=== PATIENT | female | born 1995 | race Caucasian/White ===

== ENCOUNTER 2017-03-06 03:06 | Emergency (ER) | payer OTHER ==
[~2017-03-06] VITALS: Ht 167.6 cm; Wt 52.7 kg
[2017-03-06 03:13] VITALS: TEMP 36.8; Ht 167.6 cm; Wt 52.7 kg
[2017-03-06] MEDS ORDERED: SERT-234 PO (03:29)
--- NOTE | 2017-03-06 03:47 | EMERGENCY ROOM VISIT NOTE ---
History Report prepared by Krystle: Sky Ramirez Under the Supervision of: Dr. Jessica Johnson D.O. First contact with patient: 03:15 Chief Complaint: MENTAL HEALTH EVALUATION Stated Complaint: MENTAL HEALTH History of Present Illness The patient is a 22 year old male who presents to the Emergency Room for a mental health evaluation. He currently lives in a homeless [facility]. He has for the past two months. Per the patient, he could not guarantee his own safety tonight secondary to self harm. He uses a razor to cut himself as a coping mechanism. He has cuts on his abdomen, but says he did not cut his thighs. He has been cutting for a "long time." He states that he does not want to commit suicide. He denies any alcohol or drug use. He has a past medical history of asthma, anxiety, PTSD, bipolar disorder, and depression. He takes Zoloft regularly. He is currently employed at [employer]. He denies any chest pain, shortness of breath, vomiting, abdominal pain, urinary symptoms, diarrhea, melena, hematochezia, sore throat, or cough. He is upset that he is here because he does not think it is necessary. He has been admitted into an inpatient psychiatric facility in the past, but not recently. Per a staff member in the mcc named Peyton, the patient apparently told the staff a couple of days ago that he was on the brink of suicidal thoughts and thinking about it more often. Tonight, she came downstairs to have him take his medication, but he would not come out. He then came out later asking for Neosporin for the cuts on his abdomen. He would not answer her questions about suicidal thoughts, but only said he could not guarantee his own safety in the middle of the night. Staff at the mcc petitioned the 302 because they were concerned for his cutting. He also had thoughts of killing his mother. He also told the staff that he knew exactly what to say to the crisis workers and to us to avoid being admitted. He also told them he had thoughts of killing those who had no regards for black lives. 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 A total of 10 systems reviewed and were otherwise negative. Past Medical & Surgical Medical Problems: (1) Anxiety (2) Bipolar disorder (3) Depression (4) PTSD (post-traumatic stress disorder) Family History Patient reports no known family medical history. Social History Smoking Status: Current Some Day Smoker Smokeless Tobacco Use: No Alcohol Use: none Drug Use: none Marital Status: single Housing Status: other (Homeless mcc) Occupation Status: employed Current/Historical Medications Scheduled Sertraline (Zoloft), 100 MG PO DAILY Allergies Coded Allergies: No Known Allergies (Unverified , 03/06/17) Physical Exam Vital Signs Date Time Temp Pulse Resp B/P (MAP) Pulse Ox O2 Delivery O2 Flow Rate FiO2 03/06/17 03:13 36.8 62 18 136/87 100 Room Air Physical Exam General: Patient appears depressed, is transgender, and identifies as a male. HEENT: Head - normocephalic and atraumatic Pupils are equal, round, and reactive to light. Extraocular eye muscles are intact, and sclera are anicteric. Nose - moist nasal mucosa without discharge. Mouth - moist buccal mucosa. Oropharynx is nonerythematous and there is no tonsillar exudate or edema noted. Neck: Supple; no nuchal rigidity, cervical lymphadenopathy. Heart: Regular rate and rhythm. There is a normal S1 and S2 with no murmurs, clicks, or gallops appreciated. Lungs: Clear to auscultation bilaterally with no wheezes, rales, or rhonchi. Abdomen: Soft, completely nontender, nondistended, with good bowel sounds. There are no palpable pulsatile masses or hepatosplenomegaly. There is no guarding, rigidity, or rebound noted. Very superficial self-inflicted lacerations to bilateral flanks. Extremities: No evidence of cyanosis, clubbing, or edema. There are easily palpable peripheral pulses. Skin: warm and dry with good turgor and no rashes. Psych: Completely avoids eye contact. Extremely flat affect. Denies suicidal ideation. Appears anxious at times. Medical Decision & Procedures Laboratory Results 03/06/17 03:50 03/06/17 03:50 Test 03/06/17 03:18 03/06/17 03:50 Urine Opiates Screen NEG (NEG) Urine Methadone, Qualitative NEG (NEG) Urine Barbiturates NEG (NEG) Urine Phencyclidine (PCP) Level NEG (NEG) Ur Amphetamine/Methamphetamine NEG (NEG) MDMA (Ecstasy) Screen NEG (NEG) Urine Benzodiazepines Screen NEG (NEG) Urine Cocaine Metabolite NEG (NEG) Urine Marijuana (THC) NEG (NEG) Red Blood Count 4.02 M/uL (4.2-5.4) Mean Corpuscular Volume 91.3 fL (80-100) Mean Corpuscular Hemoglobin 31.6 pg (25-34) Mean Corpuscular Hemoglobin Concent 34.6 g/dl (32-36) RDW Standard Deviation 41.1 fL (36.4-46.3) RDW Coefficient of Variation 12.1 % (11.5-14.5) Mean Platelet Volume 10.0 fL (7.4-10.4) Anion Gap 6.0 mmol/L (3-11) Est Creatinine Clear Calc Drug Dose 122.4 ml/min Estimated GFR () > 150.0 Estimated GFR (Non- 130.5 BUN/Creatinine Ratio 15.1 (10-20) Calcium Level 8.8 mg/dl (8.5-10.1) Total Bilirubin 0.2 mg/dl (0.2-1) Direct Bilirubin < 0.1 mg/dl (0-0.2) Aspartate Amino Transf (AST/SGOT) 14 U/L (15-37) Alanine Aminotransferase (ALT/SGPT) 21 U/L (12-78) Alkaline Phosphatase 69 U/L (45-117) Total Protein 7.0 gm/dl (6.4-8.2) Albumin 4.0 gm/dl (3.4-5.0) Thyroid Stimulating Hormone (TSH) 4.270 uIu/ml (0.300-4.500) Salicylates Level < 1.7 mg/dl (2.8-20) Acetaminophen Level < 2 ug/ml (10-30) Ethyl Alcohol mg/dL < 3.0 mg/dl (0-3) Laboratory results per my review. ED Course 0315: Past medical records reviewed. The patient was evaluated in room A8. A complete history and physical exam was performed. Labs were drawn as above. 0350: I have reviewed the 302 petitioning statement. 0445: After reevaluation, I offered further treatment as an inpatient at a mental health facility. The patient is willing to sign voluntarily. The staff from [address] [place] [address] will start the voluntary admission process and bed search. 0529: The patient signed the 201, and I declined the 302. 0730: The patient will be signed out to Dr. Colvin at the change in shift to complete the bed search. Medical Decision The patient is a 22 year old male who presents to the ED for a mental health evaluation. Differential diagnosis includes suicidal ideation, mood disorder, thought disorder, and homicidal ideation. I attest that I have personally reviewed the patient's current medication list. Patient was found to have normal blood pressure on screening and does not require follow-up. Laboratory Results: Negative tox screening, negative alcohol screening, negative Tylenol and Aspirin screening, normal TSH, negative renal function, normal glucose and LFTs , normal white count, and stable H&H. The patient has history of bipolar disorder, PTSD, anxiety, and depression. He has not had an inpatient stay for more than 10 years. He has a long-standing history of self-mutilation. The staff from the homeless mcc were concerned for the patient states he as he has been cutting and making suicidal and homicidal statements. The patient will require inpatient psychiatric care. He was willing to admit herself voluntarily. The bed search is currently underway. The case will be signed out to Dr. Colvin at change of shift Impression Primary Impression: Mood disorder Additional Impression: Deliberate self-cutting Scribe Attestation The scribe's documentation has been prepared under my direction and personally reviewed by me in its entirety. I confirm that the note above accurately reflects all work, treatment, procedures, and medical decision making performed by me. Departure Information Dispostion Still a Patient Patient Instructions My [facility] Problem Qualifiers
[2017-03-06 04:01] LABS: HEMATOCRIT 36.7 % (37-47); MEAN CELL VOLUME 91.3 fL (80-100); MEAN CORPUSCULAR HEMOGLOBIN 31.6 pg (25-34); MEAN CORPUSCULAR HGB CONC 34.6 g/dl (32-36); PLATELET COUNT 276 K/uL (130-400); RED BLOOD COUNT 4.02 M/uL (4.2-5.4); WHITE BLOOD COUNT 5.92 K/uL (4.8-10.8)
[2017-03-06 04:04] LABS: BENZODIAZEPINE, URINE NEG (NEG); COCAINE,URINE NEG (NEG); PHENCYCLIDINE, URINE NEG (NEG)
[2017-03-06 04:28] LABS: ALT/SGPT 21 U/L (12-78); AST/SGOT 14 U/L (15-37); BLOOD UREA NITROGEN 9 mg/dl (7-18); BUN/CREATININE RATIO 15.1 (10-20); CALCIUM 8.8 mg/dl (8.5-10.1); CARBON DIOXIDE 26 mmol/L (21-32); CHLORIDE 108 mmol/L (98-107); CREATININE 0.61 mg/dl (0.60-1.20); GLUCOSE 85 mg/dl (70-99); POTASSIUM 3.6 mmol/L (3.5-5.1); SODIUM 140 mmol/L (136-145)
[2017-03-06 04:38] LABS: ACETAMINOPHEN < 2 ug/ml (10-30)
[2017-03-06 04:39] LABS: ALKALINE PHOSPHATASE 69 U/L (45-117)
[2017-03-06] MEDS ORDERED: SERTRALINE HCL 100 MG TAB PO STA (06:38)
[2017-03-06 13:22] VITALS: BP 149/86; PULSE 76; O2SAT 100
== END 2017-03-06 13:22 | disposition still patient (30) ==
LOC: C.EDA 03:08 → EDSEX 03:08 → MERGE 03:08 → C.EDA 13:22
DX: Z00.8 Encounter for other general examination (principal); F31.9 Bipolar disorder, unspecified; X78.8XXA Intentional self-harm by other sharp object, initial encounter; F41.8 Other specified anxiety disorders; F17.210 Nicotine dependence, cigarettes, uncomplicated; Z59.0 Homelessness

== ENCOUNTER 2018-03-24 22:16 | Inpatient (IN) | payer OTHER ==
[~2018-03-24] VITALS: Ht 167.6 cm; Wt 60.2 kg
[~2018-03-24 22:16] MED LIST: SERT-234 PO
[2018-03-24] MEDS ORDERED: LORAZEPAM 2 MG/ML 1 ML VIAL ONE (22:19)
[2018-03-24] MEDS ORDERED: HALOPERIDOL LACTATE 5 MG/ML 1 ML VIAL ONE (22:19)
[2018-03-24] MEDS ORDERED: RAPID SEQUENCE INDUCTION BAG ONE (22:28)
[2018-03-24] MEDS ORDERED: PROPOFOL IV EMULSION 10 MG/ML 100 ML VIAL IV STA (22:39)
[2018-03-24] MEDS ORDERED: SODIUM CHLORIDE 0.9% 1000ML 2,000 ML IV STA (22:42)
[2018-03-24 22:51] LABS: BASO % 0.1 %; BASO ABS # 0.02 K/uL (0-0.2); HEMATOCRIT 42.4 % (37-47); HEMOGLOBIN 14.9 g/dL (12.0-16.0); IG# 0.04 K/uL (0.00-0.02); LYMPH % 7.4 %; LYMPH ABS # 1.06 K/uL (1.2-3.4); MEAN CORPUSCULAR HEMOGLOBIN 32.3 pg (25-34); MEAN CORPUSCULAR HGB CONC 35.1 g/dl (32-36); MEAN PLATELET VOLUME 10.1 fL (7.4-10.4); MONO % 6.6 %; MONO ABS # 0.95 K/uL (0.11-0.59); NEUT % 85.6 %; NEUT ABS # 12.35 K/uL (1.4-6.5); PLATELET COUNT 325 K/uL (130-400); RED CELL DISTRIBUTION WIDTH CV 12.9 % (11.5-14.5); RED CELL DISTRIBUTION WIDTH SD 43.2 fL (36.4-46.3); WHITE BLOOD COUNT 14.42 K/uL (4.8-10.8)
[2018-03-24 23:01] LABS: PTT PATIENT 24.8 SECONDS (21.0-31.0)
--- NOTE | 2018-03-24 23:10 | DIAGNOSTIC IMAGING REPORT ---
CHEST ONE VIEW PORTABLE HISTORY: Altered mental status. COMPARISON: None. FINDINGS: The endotracheal tube is located within the right mainstem bronchus. This report back by approximately 3 cm. No pneumothorax. No pleural effusions. The lungs are clear. The heart is normal in size. IMPRESSION: The endotracheal tube is located within the right mainstem bronchus. This should be pulled back by approximately 3 cm. These findings were discussed with Dr. Britt at 11:09 PM on 03/24/2018. Electronically signed by: Ed Newman M.D. 03/24/2018 11:09 PM Dictated Date/Time: 03/24/2018 11:07 PM
[2018-03-24 23:26] LABS: ALBUMIN 4.7 gm/dl (3.4-5.0); ALKALINE PHOSPHATASE 94 U/L (45-117); ALT/SGPT 27 U/L (12-78); AST/SGOT 48 U/L (15-37); BLOOD UREA NITROGEN 14 mg/dl (7-18); CALCIUM 9.1 mg/dl (8.5-10.1); CARBON DIOXIDE 18 mmol/L (21-32); CREATININE 1.27 mg/dl (0.60-1.20); GLUCOSE 118 mg/dl (70-99); POTASSIUM 3.8 mmol/L (3.5-5.1); SODIUM 142 mmol/L (136-145); TOTAL PROTEIN 8.3 gm/dl (6.4-8.2)
[2018-03-24] MEDS ORDERED: CEFEPIME IV 1,000 MG in DEXTROSE 5% 100ML 100 ML IV STA (23:46)
[2018-03-25] VITALS (20 sets, daily range): BP systolic 58–182; BP diastolic 35–119; PULSE 49–91; TEMP 36.4–36.8; O2SAT 95–100; Ht 167.6 cm; Wt 60.2 kg
[2018-03-25] MEDS ORDERED: ROCURONIUM BROMIDE 10 MG/ML 10 ML VIAL IV STA (00:14)
[2018-03-25] MEDS ORDERED: VANCOMYCIN CONSULT ACTIVE PRN (00:15)
[2018-03-25] MEDS ORDERED: LORAZEPAM 2 MG/ML 1 ML VIAL IV PRN (00:15)
[2018-03-25] MEDS ORDERED: ICU PROTOCOL FOR HYPERGLYCEMIA PRN (00:15)
[2018-03-25] MEDS ORDERED: PIPERACILL/TAZOBAC CONSULT ACTIVE PRN (00:15)
[2018-03-25] MEDS ORDERED: PROPOFOL IV EMULSION 10 MG/ML 100 ML VIAL IV PRN ×2 (00:15→05:00)
[2018-03-25] MEDS ORDERED: PROPOFOL IV EMULSION 10 MG/ML 100 ML VIAL IV STA (00:17)
[2018-03-25] MEDS ORDERED: SODIUM CHLORIDE 0.9% 1000ML 1,000 ML IV STA (00:30)
[2018-03-25] MEDS ORDERED: ALBUTEROL HFA 8 GM INHALER INH PRN (00:30)
--- NOTE | 2018-03-25 01:47 | EMERGENCY ROOM VISIT NOTE ---
History Report prepared by Scribe: Juwan Bolivar Under the Supervision of: Dr. Cristian Britt D.O. First contact with patient: 22:16 Chief Complaint: OVERDOSE (INTENTIONAL) Stated Complaint: OVERDOSE History of Present Illness The patient is a 20 year old female who presents to the Emergency Room with complaints of constant altered mental status that began this evening. Per police , the patient was at [employer] causing trouble. The patient started to yell and punched people. She then went to [employer] and threatened to punch customers. The patient was escorted out of the restaurant. The patient then began to slam her body against the window. She was found by police laying in the road. The HPI is limited secondary to AMS. Source of History: police History Limited By: AMS Onset: this evening Timing: constant Review of Systems ROS is limited secondary to AMS. Past Medical & Surgical Medical Problems: (1) Agitation (2) Altered mental status (3) Anxiety (4) Asthma (5) Bipolar disorder (6) Depression (7) Depression (8) PTSD (post-traumatic stress disorder) Family History Patient reports no known family medical history. Social History Marital Status: single Occupation Status: employed Current/Historical Medications Unable to Obtain Active Prescriptions or Reported Meds Allergies Coded Allergies: No Known Allergies (Unverified , 03/25/18) Physical Exam Vital Signs Date Time Temp Pulse Resp B/P (MAP) Pulse Ox O2 Delivery O2 Flow Rate FiO2 03/24/18 23:45 75 12 131/78 99 Mechanical Ventilator 03/24/18 23:33 78 03/24/18 23:32 37.4 78 12 149/98 100 Mechanical Ventilator 03/24/18 22:50 50 03/24/18 22:44 39.3 168 34 187/142 99 Room Air Physical Exam GENERAL: Laying in bed, screaming and yelling about God and Gabe, shaking upper and lower body, diaphoretic, soaking through clothes. EYE EXAM: Pupils are dilated bilaterally but reactive. HEAD: Abrasion to the face on the right OROPHARYNX: mucous membranes are dry NECK: supple, no nuchal rigidity, no adenopathy, non-tender LUNGS: Clear to auscultation. Normal chest wall mechanics HEART: Tachycardic, no murmurs. CHEST: Stable to compression anteriorly and posteriorly PELVIS: Stable to compression anteriorly and posteriorly ABDOMEN: abdomen soft, non-tender, normo-active bowel sounds, no masses, no rebound or guarding. BACK: Back is symmetrical on inspection and there is no deformity, no midline tenderness, no CVA tenderness. SKIN: no rashes and no bruising, Abrasions to right side of face. UPPER EXTREMITIES: upper extremities are grossly normal. LOWER EXTREMITIES: No pitting edema. NEURO EXAM: Moving all extremities, nonfocal, fighting, and spitting. Medical Decision & Procedures ER Provider Diagnostic Interpretation: Radiology results as stated below per my review and the radiologist's interpretation: CHEST ONE VIEW PORTABLE HISTORY: Altered mental status. COMPARISON: None. FINDINGS: The endotracheal tube is located within the right mainstem bronchus. This report back by approximately 3 cm. No pneumothorax. No pleural effusions. The lungs are clear. The heart is normal in size. IMPRESSION: The endotracheal tube is located within the right mainstem bronchus. This should be pulled back by approximately 3 cm. These findings were discussed with Dr. Britt at 11:09 PM on 03/24/2018. Electronically signed by: Ed Newman M.D. 03/24/2018 11:09 PM Dictated Date/Time: 03/24/2018 11:[address] HEAD: No intracranial hemorrhage, mass effect or CT evidence of acute infarct. Ventricles are within limits and midline. Mastoids are clear. Radiologist: Pedro Gould M.D. CT C SPINE: No fracture or malalignment. C5-6 spondylosis Endotracheal tube Radiologist: Pedro Gould M.D. NM VQ: Negative study. Radiologist: Zoila Ramos M.D. Laboratory Results 03/24/18 22:40 Red Blood Count 4.61, Mean Corpuscular Volume 92.0, Mean Corpuscular Hemoglobin 32.3, Mean Corpuscular Hemoglobin Concent 35.1, Mean Platelet Volume 10.1, Neutrophils (%) (Auto) 85.6, Lymphocytes (%) (Auto) 7.4, Monocytes (%) (Auto) 6.6, Eosinophils (%) (Auto) 0.0, Basophils (%) (Auto) 0.1, Neutrophils # (Auto) 12.35, Lymphocytes # (Auto) 1.06, Monocytes # (Auto) 0.95, Eosinophils # (Auto) 0.00, Basophils # (Auto) 0.02 03/24/18 22:40 Test 03/24/18 22:40 03/24/18 22:42 03/24/18 23:40 White Blood Count 14.42 K/uL (4.8-10.8) Red Blood Count 4.61 M/uL (4.2-5.4) Hemoglobin 14.9 g/dL (12.0-16.0) Hematocrit 42.4 % (37-47) Mean Corpuscular Volume 92.0 fL (80-100) Mean Corpuscular Hemoglobin 32.3 pg (25-34) Mean Corpuscular Hemoglobin Concent 35.1 g/dl (32-36) Platelet Count 325 K/uL (130-400) Mean Platelet Volume 10.1 fL (7.4-10.4) Neutrophils (%) (Auto) 85.6 % Lymphocytes (%) (Auto) 7.4 % Monocytes (%) (Auto) 6.6 % Eosinophils (%) (Auto) 0.0 % Basophils (%) (Auto) 0.1 % Neutrophils # (Auto) 12.35 K/uL (1.4-6.5) Lymphocytes # (Auto) 1.06 K/uL (1.2-3.4) Monocytes # (Auto) 0.95 K/uL (0.11-0.59) Eosinophils # (Auto) 0.00 K/uL (0-0.5) Basophils # (Auto) 0.02 K/uL (0-0.2) RDW Standard Deviation 43.2 fL (36.4-46.3) RDW Coefficient of Variation 12.9 % (11.5-14.5) Immature Granulocyte % (Auto) 0.3 % Immature Granulocyte # (Auto) 0.04 K/uL (0.00-0.02) Prothrombin Time 11.0 SECONDS (9.0-12.0) Prothromb Time International Ratio 1.0 (0.9-1.1) Activated Partial Thromboplast Time 24.8 SECONDS (21.0-31.0) Partial Thromboplastin Ratio 1.0 Anion Gap 17.0 mmol/L (3-11) Estimated GFR () 69.9 Estimated GFR (Non- 60.3 BUN/Creatinine Ratio 10.9 (10-20) Calcium Level 9.1 mg/dl (8.5-10.1) Total Bilirubin 0.6 mg/dl (0.2-1) Direct Bilirubin mg/dl (0-0.2) Aspartate Amino Transf (AST/SGOT) 48 U/L (15-37) Alanine Aminotransferase (ALT/SGPT) 27 U/L (12-78) Alkaline Phosphatase 94 U/L (45-117) Total Creatine Kinase 638 U/L (26-192) Troponin I 0.015 ng/ml (0-0.045) Total Protein 8.3 gm/dl (6.4-8.2) Albumin 4.7 gm/dl (3.4-5.0) Chemistry Specimen Hemolysis Bedside Lactic Acid Venous 3.56 mmol/L (0.90-1.70) Urine Color YELLOW Urine Appearance CLEAR (CLEAR) Urine pH 5.5 (4.5-7.5) Urine Specific [place] 1.019 (1.000-1.030) Urine Protein TRACE (NEG) Urine Glucose (UA) NEG (NEG) Urine Ketones 3+ (NEG) Urine Occult Blood 1+ (NEG) Urine Nitrite NEG (NEG) Urine Bilirubin NEG (NEG) Urine Urobilinogen NEG (NEG) Urine Leukocyte Esterase SMALL (NEG) Urine WBC (Auto) 10-30 /hpf (0-5) Urine RBC (Auto) 5-10 /hpf (0-4) Urine Hyaline Casts (Auto) 5-10 /lpf (0-5) Urine Epithelial Cells (Auto) >30 /lpf (0-5) Urine Bacteria (Auto) 1+ (NEG) Urine Pathogenic Casts 10-20 GRANULAR CASTS /lpf (0) Urine Mucus PRESENT (NONE PRSENT) Urine Yeast (Auto) (NONE PRSENT) Laboratory results per my review. Medications Administered Medications (Trade) Dose Ordered Sig/S[place] Route Start Time Stop Time Status Last Admin Dose Admin Lorazepam (Ativan Inj) 4 mg STK-MED ONCE .ROUTE 03/24/18 22:19 03/24/18 22:20 DC 03/24/18 22:19 4 MG Haloperidol Lactate (Haldol Inj) 20 mg STK-MED ONCE .ROUTE 03/24/18 22:19 03/24/18 22:20 DC 03/24/18 22:19 20 MG Miscellaneous (Rapid Sequence Induction Bag) 1 ea STK-MED ONCE N/A 03/24/18 22:28 03/24/18 22:29 DC 03/24/18 22:35 1 EA Propofol (Diprivan Iv Emulsion 100ml Vial) 1 dose UD STAT IV 03/24/18 22:39 03/24/18 22:41 DC 03/24/18 22:49 1 DOSE Sodium Chloride 2,000 ml @ 999 mls/hr Q2H1M STAT IV 03/24/18 22:42 03/25/18 00:42 DC 03/24/18 22:49 999 MLS/HR Cefepime HCl 1000 mg/Dextrose 111 ml @ 200 mls/hr NOW STAT IV 03/24/18 23:46 03/25/18 00:19 DC 03/25/18 00:16 200 MLS/HR Procedure EM PROCEDURE NOTE - Endotracheal Intubation PROCEDURE NOTE: Informed consent was not obtained by the patient. Verify Correct Patient: yes Procedure: Endotracheal intubation Indication: agitated delirium The procedure was done emergently. Description of the Procedure: The patient was seen and properly identified. The patient was pre-oxygenated and intubated after rapid sequence induction with meds: Succinylcholine and Ketamine. Intubation was performed using a curved blade and a 7.5 cuffed endotracheal tube. The tube was visualized going through the cords and secured with the 24 cm trevor at the lips. The patient had good bilateral breath sounds in the axillae with good chest rise. Proper ET tube placement was confirmed by end tidal CO2 detector. The patient tolerated the procedure well. ECG Per My Interpretation Indication: altered mental status Rate (beats per minute): 95 Rhythm: sinus rhythm Findings: other (Normal axis, No PVCs) ED Course ED COURSE: Vital signs were reviewed and showed hyperthermic, tachycardic, hypertensive The patients medical record was reviewed The above diagnostic studies were performed and reviewed. ED treatments and interventions as stated above. 2216: The patient was evaluated in room A03. A complete history and physical examination was performed 2219: Ordered Haldol Injection 30 mg IV, Ativan Injection 4 mg IV. 2228: I performed an endotracheal intubation. See procedure notes for further detail. 2239: Ordered Propofol 1 dose IV. 2242: Ordered Sodium Chloride 2000 ml @ 999 mls/hr IV. 2248: I discussed the patients case with Faustino Sosa [facility] PA-C Senior Infrastructure Engineer. He agrees to further evaluate the patient. 2305: I reevaluated the patient. She is going to CT. CCU is down evaluating the patient. 2326: I reevaluated the patient and she is still unconscious.' 2331: I discussed the patients case with Dr. Leigh. He understands the patients condition and agrees to accept the patient. 2346: Ordered Cefepime HCl 1000 mg/ Dextrose 111 ml @ 200 mls/hr IV. 0014: I reevaluated the patient and she is starting to move upper and lower extremities. Medical Decision Differential diagnoses includes but is not limited to toxic, metabolic, infectious, traumatic, cardiac, neurologic, hematologic, psychiatric and inflammatory etiologies. Patient is a 23-year-old female brought in by police and EMS being restrained screaming yelling and shaking. On my exam she was diaphoretic, unreasonable and extremely agitated along with being tachycardic. Unable to get vitals. We immediately gave her 10 mg of Haldol and 2 mg of Ativan. There is no improvement we readministered 10 mg of Haldol and 2 of Ativan 2 minutes later again with no improvement. We waited a total of 10 minutes following the last dose and there is absolutely no improvement of her symptoms. She was febrile at 39.3. At this point I felt it was most prudent in the patient's best interest to intubate her. She was taken into the trauma bay and IV was eventually established she was given succinylcholine and ketamine. She was intubated successfully on the first attempt. ET tube was initially deep on the right mainstem and was pulled back after the chest x-ray to 22 at the lips. Patient was given vecuronium and placed on propofol drip. Temperature was rechecked at 10 came down to 37.4. She started to arouse and she was given rocuronium IV an hour later to ensure that she settled down. We did continue with the propofol. Discussed with the anatomic pathology manager and the hospitalist. Lactate was elevated as expected. She did have a white count as well. I do not favor this is infectious but rather this is agitated delirium based on her presentation. I did obtain blood cultures and did give her 1 dose of antibiotics after discussion with the ICU. Patient was given 3 L normal saline. She was covered with cefepime. She was monitored closely and taken to the ICU following a negative CT head and neck. UA was contaminated. CO2 is slightly low at 17 and do favor this likely secondary to her agitated delirium. Medication Reconcilliation Current Medication List: was personally reviewed by me Blood Pressure Screening Patient's blood pressure: Elevated blood pressure Blood pressure disposition: Elevated BP felt to be situational Consults Time Called: 2247 Consulting Physician: Faustino Sosa [facility] Senior Infrastructure Engineer Returned Call: 2247 I discussed the patients case with Faustino Sosa [facility] DEBBY Senior Infrastructure Engineer. He agrees to further evaluate the patient. Additional Consults: Time Called: 2327 Consulted Physician: Dr. Leigh [facility] Hospitalist Returned Call: 2330 Additional Comments: I discussed the patients case with Dr. Leigh. He understands the patients condition and agrees to accept the patient. Impression Primary Impression: Delirium due to dissociative drug Additional Impressions: Hyperthermia Leukocytosis Lactic acidosis Delirium Critical Care I have personally spent 80 minutes of critical care time in the direct management of this patient. This includes bedside care, interpretation of diagnostic studies, and testing, discussion with consultants, patient, and family members, and other required patient management activities. This 80 minutes is in excess of all separately billable procedures. Scribe Attestation The scribe's documentation has been prepared under my direction and personally reviewed by me in its entirety. I confirm that the note above accurately reflects all work, treatment, procedures, and medical decision making performed by me. Departure Information Dispostion Being Evaluated By Hospitalist Prescriptions Unable to Obtain Active Prescriptions or Reported Meds Patient Instructions My [facility] Problem Qualifiers Additional Impressions: Leukocytosis Leukocytosis type: unspecified Qualified Codes: D72.829 - Elevated white blood cell count, unspecified
[2018-03-25] MEDS ORDERED: VANCOMYCIN IV 1,750 MG in SODIUM CHLORIDE 0.9% 500ML 500 ML IV ONE (02:00)
[2018-03-25] MEDS ORDERED: VANCOMYCIN IV 1,500 MG in SODIUM CHLORIDE 0.9% 500ML 500 ML IV ONE (02:00)
[2018-03-25] MEDS ORDERED: PIPERACILL/TAZOBAC IV 4.5 GM in D5W 100 ML IV ONE (02:00)
[2018-03-25] MEDS ORDERED: SODIUM CHLORIDE 0.9% 1000ML 1,000 ML IV SCH (02:17)
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
[2018-03-25] MEDS ORDERED: LORAZEPAM INJ 1 MG in SYRINGE 0.5 ML IV PRN (03:30)
[2018-03-25] MEDS ORDERED: PNEUMOCOCCAL POLYSACCHARIDES 25 MCG/0.5 ML VIAL/SYR IM. ONE (04:00)
[2018-03-25] MEDS ORDERED: PNEUMOCOCCAL ADMINISTRATION CHARGE ONE (04:00)
[2018-03-25 05:02] LABS: BASO % 0.2 %; BASO ABS # 0.02 K/uL (0-0.2); EOS % 0.3 %; EOS ABS # 0.03 K/uL (0-0.5); HEMATOCRIT 39.3 % (37-47); HEMOGLOBIN 13.5 g/dL (12.0-16.0); IG# 0.03 K/uL (0.00-0.02); LYMPH % 18.7 %; LYMPH ABS # 2.11 K/uL (1.2-3.4); MEAN CELL VOLUME 93.1 fL (80-100); MEAN CORPUSCULAR HGB CONC 34.4 g/dl (32-36); MEAN PLATELET VOLUME 9.7 fL (7.4-10.4); MONO % 9.8 %; NEUT % 70.7 %; NEUT ABS # 7.99 K/uL (1.4-6.5); PLATELET COUNT 261 K/uL (130-400); RED CELL DISTRIBUTION WIDTH SD 43.5 fL (36.4-46.3); WHITE BLOOD COUNT 11.28 K/uL (4.8-10.8)
[2018-03-25] MEDS: NSS + 20MEQ KCL 1000ML 1,000 ML IV SCH ×3 (05:05→19:22)
[2018-03-25 05:27] LABS: ALBUMIN 3.6 gm/dl (3.4-5.0); CALCIUM 7.6 mg/dl (8.5-10.1); CREATININE 0.74 mg/dl (0.60-1.20); POTASSIUM 3.8 mmol/L (3.5-5.1)
[2018-03-25 05:48] LABS: TOTAL PROTEIN 6.6 gm/dl (6.4-8.2)
[2018-03-25] MEDS ORDERED: PIPERACILL/TAZOBAC IV 3.375 GM in DEXTROSE 5% 100ML 100 ML IV SCH (08:00)
[2018-03-25] MEDS ORDERED: HEPARIN SOD 5000 UNIT/0.5 ML CARP SQ SCH (09:00)
--- NOTE | 2018-03-25 09:02 | DIAGNOSTIC IMAGING REPORT ---
HEAD WITHOUT CONTRAST (CT) CLINICAL HISTORY: 23 years-old Female with ams . Acutely altered mental status with drug overdose TECHNIQUE: Multiple axial CT images of the head were obtained without contrast. A dose lowering technique was utilized adhering to the principles of ALARA. COMPARISON: CT cervical spine of same day. FINDINGS: No acute intracranial hemorrhage, midline shift, intracranial mass, hydrocephalus, territorial ischemia or abnormal extra-axial collection. The calvarium is intact. Endotracheal tube noted. Mucosal secretions are seen within the nasal turbinates and nasopharynx with moderate mucosal thickening of the ethmoid air cells. IMPRESSION: No acute intracranial abnormality. The above report was generated using voice recognition software. It may contain grammatical, syntax or spelling errors. Electronically signed by: Chris Palma M.D. 03/25/2018 6:30 AM Dictated Date/Time: 03/25/2018 6:28 AM
--- NOTE | 2018-03-25 09:02 | DIAGNOSTIC IMAGING REPORT ---
CHEST ONE VIEW PORTABLE CLINICAL HISTORY: The endotracheal tube placement. COMPARISON STUDY: Chest radiograph March 24, 2018. FINDINGS: The tip of the endotracheal tube is 3.4 cm above the prema. No pneumothorax or pleural effusion is noted. Curvature of the spine may be positional. Lungs are clear. Cardiac size is normal. Mediastinal contours are normal. IMPRESSION: 1. Tip of endotracheal tube 3.4 cm above the prema. 2. No acute cardiopulmonary findings. Electronically signed by: Souleymane Downing M.D. 03/25/2018 6:32 AM Dictated Date/Time: 03/25/2018 6:30 AM
--- NOTE | 2018-03-25 09:03 | DIAGNOSTIC IMAGING REPORT ---
CT OF THE CERVICAL SPINE WITHOUT CONTRAST CLINICAL HISTORY: Trauma. Altered mental status. COMPARISON STUDY: No previous studies for comparison. TECHNIQUE: Helical axial images of the cervical spine were obtained without IV contrast. Sagittal and coronal reconstructions were viewed. A dose lowering technique was utilized adhering to the principles of ALARA. FINDINGS: Endotracheal tube is noted. Alignment of the cervical spine is anatomic. Craniocervical junction is intact. There is no acute cervical spine fracture. There is mild osteophytosis at C5-C6. Facet joints are intact. There is no prevertebral edema. Secretions within the pharynx are likely related to intubation. IMPRESSION: No acute cervical spine fracture or subluxation. Electronically signed by: Souleymane Downing M.D. 03/25/2018 7:09 AM Dictated Date/Time: 03/25/2018 7:07 AM
[2018-03-25] MEDS ORDERED: VANCOMYCIN IV 750 MG in SODIUM CHLORIDE 0.9% 250ML 250 ML IV SCH (10:00)
[2018-03-25] MEDS ORDERED: LACTATED RINGER'S 1000ML 1,000 ML IV ONE (10:45)
[2018-03-25] MEDS ORDERED: PANTOprazole INJ 40 MG in SYRINGE 0 ML IV SCH (11:00)
[2018-03-25] MEDS ORDERED: GLUCOSE 10 TABS/TUBE PO PRN (11:45)
[2018-03-25] MEDS ORDERED: GLUCAGON FOR INJ 1 MG VIAL IM PRN (11:45)
[2018-03-25] MEDS ORDERED: CARBOHYDRATES FOR HYPOGLYCEMIA PO PRN (11:45)
[2018-03-25] MEDS ORDERED: DEXTROSE 50% 50 ML SYR IV PRN (11:45)
[2018-03-25] MEDS ORDERED: GLUCOSE 40% GEL 15 GM TUBE PO PRN (11:45)
--- NOTE | 2018-03-25 16:34 | Progress Note ---
Internal Med Progress Note Date of Service: Mar 25, 2018. Provider Documentation: SUBJECTIVE: The patient was seen and examined in ICU She was admitted yesterday agitated psychosis which required intubation in ER She was noted to have high temperature at presentation without any source of infection She is extubated early this morning Feels drowsy and cannot remember about intubation at all Expressed to the hospital this morning even with AMA OBJECTIVE: Vital Signs-as noted below Exam: General-drowsy and sleepy Status post extubation without any shortness of breath or distress at rest Eyes-closed ENT-normal Neck-supple Lungs-decreased breath sounds both sides but no wheezing or crackles Heart-regular, no murmur appreciated Abdomen-soft, benign, nontender Extremities-negative for any edema Neuro-alert and awake Seems to be oriented-does not want to answer Drowsy and falling asleep easily Moving all limbs equally Generally weak but no focal neuro deficit Lab data as noted below. ASSESSMENT & PLAN: This 23-year-old female presents with possible drug overdose and agitation. Agitated psychosis; status post intubation last night and successful extubation this morning 03/25 Possible drug overdose with agitation. Received 4 mg of IV Ativan and IV Haldol 20 mg and status post intubation on Diprivan drip currently. Lactic acid was 3.5 and bicarb was 18-doubt any sepsis. Received IV cefepime and fluids in the ER. Empirically starting on Zosyn and vancomycin. Tox screen only positive for marijuana Has not been taking any antipsychotic medications as per the note Seems to very noncooperative in giving information History of depression/bipolar disorder As per [facility] in 2013 she was on risperidone and Zoloft. Currently seems on Zoloft. Very difficult to get any information regarding her medical issues We need a psychiatric evaluation while in the hospital History of asthma. Albuterol p.r.n. Deep venous thrombosis prophylaxis, SCDs for now. Disposition: Admit to the ICU. 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 Medically stable to be transferred to telemetry unit Vital Signs: Date Time Temp Pulse Resp B/P (MAP) Pulse Ox O2 Delivery O2 Flow Rate FiO2 03/25/18 16:00 36.8 52 12 115/55 (75) 95 Room Air 03/25/18 16:00 Room Air 03/25/18 14:00 52 14 129/65 (86) 97 Room Air 03/25/18 12:00 36.5 62 10 147/88 (107) 97 Nasal Cannula 2.0 03/25/18 10:00 57 12 107/67 (80) 100 Nasal Cannula 2.0 03/25/18 08:00 36.5 51 16 118/81 (93) 100 Nasal Cannula 2.0 03/25/18 08:00 Nasal Cannula 03/25/18 08:00 Nasal Cannula 2.0 03/25/18 07:29 30 03/25/18 07:10 30 03/25/18 06:01 49 14 104/55 (71) 99 Mechanical Ventilator 30 03/25/18 05:52 30 03/25/18 05:49 99 Mechanical Ventilator 30 03/25/18 05:01 61 23 121/87 (98) 99 Mechanical Ventilator 30 03/25/18 05:00 30 03/25/18 04:01 36.4 58 32 115/62 (79) 98 Mechanical Ventilator 35 03/25/18 03:20 56 40 119/71 (87) 99 03/25/18 03:10 51 30 131/85 (100) 100 Mechanical Ventilator 03/25/18 03:05 70 29 141/106 (118) 100 Mechanical Ventilator 03/25/18 03:04 75 36 58/35 (43) 100 Mechanical Ventilator 03/25/18 03:01 91 38 158/119 (132) 99 Mechanical Ventilator 35 03/25/18 02:58 35 03/25/18 02:01 72 44 127/77 (94) 99 Mechanical Ventilator 50 03/25/18 01:40 36.4 78 14 156/110 100 Mechanical Ventilator 50 03/25/18 01:17 69 43 132/87 (102) 100 Mechanical Ventilator 50 03/25/18 01:08 50 03/25/18 01:04 69 30 156/110 (125) 100 Mechanical Ventilator 50 03/25/18 01:01 36.4 78 19 182/118 (139) 100 Mechanical Ventilator 50 03/25/18 00:38 89 12 146/96 100 03/25/18 00:25 93 12 153/94 100 Mechanical Ventilator 03/25/18 00:24 93 12 156/101 100 Mechanical Ventilator 03/24/18 23:45 75 12 131/78 99 Mechanical Ventilator 03/24/18 23:33 78 03/24/18 23:32 37.4 78 12 149/98 100 Mechanical Ventilator 03/24/18 22:50 50 03/24/18 22:44 39.3 168 34 187/142 99 Room Air Lab Results: Results Past 24 Hours Test 03/24/18 22:40 03/24/18 22:42 03/24/18 23:40 03/25/18 04:44 Range/Units White Blood Count 14.42 11.28 4.8-10.8 K/uL Red Blood Count 4.61 4.22 4.2-5.4 M/uL Hemoglobin 14.9 13.5 12.0-16.0 g/dL Hematocrit 42.4 39.3 37-47 % Mean Corpuscular Volume 92.0 93.1 80-100 fL Mean Corpuscular Hemoglobin 32.3 32.0 25-34 pg Mean Corpuscular Hemoglobin Concent 35.1 34.4 32-36 g/dl Platelet Count 325 261 130-400 K/uL Mean Platelet Volume 10.1 9.7 7.4-10.4 fL Neutrophils (%) (Auto) 85.6 70.7 % Lymphocytes (%) (Auto) 7.4 18.7 % Monocytes (%) (Auto) 6.6 9.8 % Eosinophils (%) (Auto) 0.0 0.3 % Basophils (%) (Auto) 0.1 0.2 % Neutrophils # (Auto) 12.35 7.99 1.4-6.5 K/uL Lymphocytes # (Auto) 1.06 2.11 1.2-3.4 K/uL Monocytes # (Auto) 0.95 1.10 0.11-0.59 K/uL Eosinophils # (Auto) 0.00 0.03 0-0.5 K/uL Basophils # (Auto) 0.02 0.02 0-0.2 K/uL RDW Standard Deviation 43.2 43.5 36.4-46.3 fL RDW Coefficient of Variation 12.9 13.0 11.5-14.5 % Immature Granulocyte % (Auto) 0.3 0.3 % Immature Granulocyte # (Auto) 0.04 0.03 0.00-0.02 K/uL Prothrombin Time 11.0 9.0-12.0 SECONDS Prothromb Time International Ratio 1.0 0.9-1.1 Activated Partial Thromboplast Time 24.8 21.0-31.0 SECONDS Partial Thromboplastin Ratio 1.0 Sodium Level 142 142 136-145 mmol/L Potassium Level 3.8 3.8 3.5-5.1 mmol/L Chloride Level 107 114 98-107 mmol/L Carbon Dioxide Level 18 20 21-32 mmol/L Anion Gap 17.0 8.0 3-11 mmol/L Blood Urea Nitrogen 14 11 7-18 mg/dl Creatinine 1.27 0.74 0.60-1.20 mg/dl Estimated GFR () 69.9 134.2 Estimated GFR (Non- 60.3 115.8 BUN/Creatinine Ratio 10.9 14.5 10-20 Random Glucose 118 84 70-99 mg/dl Calcium Level 9.1 7.6 8.5-10.1 mg/dl Total Bilirubin 0.6 0.7 0.2-1 mg/dl Direct Bilirubin 0-0.2 mg/dl Aspartate Amino Transf (AST/SGOT) 48 44 15-37 U/L Alanine Aminotransferase (ALT/SGPT) 27 22 12-78 U/L Alkaline Phosphatase 94 75 45-117 U/L Total Creatine Kinase 638 1166 26-192 U/L Troponin I 0.015 0-0.045 ng/ml Total Protein 8.3 6.6 6.4-8.2 gm/dl Albumin 4.7 3.6 3.4-5.0 gm/dl Chemistry Specimen Hemolysis Bedside Lactic Acid Venous 3.56 0.90-1.70 mmol/L Urine Color YELLOW Urine Appearance CLEAR CLEAR Urine pH 5.5 4.5-7.5 Urine Specific Pavilion 1.019 1.000-1.030 Urine Protein TRACE NEG Urine Glucose (UA) NEG NEG Urine Ketones 3+ NEG Urine Occult Blood 1+ NEG Urine Nitrite NEG NEG Urine Bilirubin NEG NEG Urine Urobilinogen NEG NEG Urine Leukocyte Esterase SMALL NEG Urine WBC (Auto) 10-30 0-5 /hpf Urine RBC (Auto) 5-10 0-4 /hpf Urine Hyaline Casts (Auto) 5-10 0-5 /lpf Urine Epithelial Cells (Auto) >30 0-5 /lpf Urine Bacteria (Auto) 1+ NEG Urine Pathogenic Casts 10-20 GRANULAR CASTS 0 /lpf Urine Mucus PRESENT NONE PRSENT Urine Yeast (Auto) NONE PRSENT Urine Opiates Screen NEG NEG Urine Methadone, Qualitative NEG NEG Urine Barbiturates NEG NEG Urine Phencyclidine (PCP) Level NEG NEG Ur Amphetamine/Methamphetamine NEG NEG MDMA (Ecstasy) Screen NEG NEG Urine Benzodiazepines Screen NEG NEG Urine Cocaine Metabolite NEG NEG Urine Marijuana (THC) POS NEG Est Creatinine Clear Calc Drug Dose 112.5 ml/min Lactic Acid Level 0.6 0.4-2.0 mmol/L Magnesium Level 2.1 1.8-2.4 mg/dl Globulin 3.0 2.5-4.0 gm/dl Albumin/Globulin Ratio 1.2 0.9-2 Test 03/25/18 05:15 03/25/18 10:52 03/25/18 10:53 03/25/18 11:17 Range/Units Blood Gas Sample Site L Radial Bedside Blood Gas pH (LAB) 7.37 7.35-7.45 Bedside Blood Gas pCO2 (LAB) 38 35-46 mmHg Bedside Blood Gas pO2 (LAB) 188 80-95 mmHg Bedside Blood Gas HCO3 (LAB) 22 19-24 meq/L Bedside Blood Gas Total CO2 23 24-31 mEq/l Bedside Blood Gas Base Excess (LAB) -4.0 -9-1.8 meq/L Bedside Blood Gas O2 Saturation 100.0 90-95 % Carlos Test Pass Oxygen Delivery Device Ventilator Bedside Oxygen Rate (breaths/min) 14 Blood Gas Minute Ventilation 6.8 Bedside FiO2 35 % Blood Gas Tidal Volume 500 Blood Gas PEEP 5 Total Creatine Kinase 1481 26-192 U/L Human Chorionic Gonadotropin, Qual NEG NEG Bedside Glucose 66 70-90 mg/dl Test 03/25/18 11:53 Range/Units Bedside Glucose 71 70-90 mg/dl Microbiology Results 03/25/18 Blood Culture, Received Pending 03/25/18 Blood Culture, Received Pending 03/25/18 MRSA DNA Surveillance Screen - Final, Complete Specimen Negative for MRSA by DNA Probe 03/24/18 Urine Culture, Received Pending
[2018-03-26 00:07] VITALS: BP 111/55; PULSE 58; TEMP 36.7; O2SAT 98
[2018-03-26] MEDS: NSS + 20MEQ KCL 1000ML 1,000 ML IV SCH ×3 (03:35→20:38)
--- NOTE | 2018-03-26 07:01 | DIAGNOSTIC IMAGING REPORT ---
CHEST ONE VIEW PORTABLE HISTORY: 23 years-old Female S/P INTUBATION. Acute respiratory failure COMPARISON: Chest radiograph 03/25/2018 TECHNIQUE: Portable AP view of the chest FINDINGS: Cardiomediastinal and hilar silhouettes are within normal limits. Previously noted endotracheal tube is no longer present. No pneumothorax, pleural effusion, focal airspace consolidation or overt pulmonary edema. The bones of the chest appear grossly intact. IMPRESSION: Interval extubation without acute process. The above report was generated using voice recognition software. It may contain grammatical, syntax or spelling errors. Electronically signed by: Chris Palma M.D. 03/26/2018 6:59 AM Dictated Date/Time: 03/26/2018 6:58 AM
[2018-03-26 07:16] VITALS: BP 127/65; PULSE 81; TEMP 36.9; O2SAT 99
[2018-03-26 08:11] LABS: BASO % 0.3 %; BASO ABS # 0.02 K/uL (0-0.2); EOS % 0.5 %; EOS ABS # 0.04 K/uL (0-0.5); HEMATOCRIT 43.1 % (37-47); HEMOGLOBIN 14.3 g/dL (12.0-16.0); IG# 0.02 K/uL (0.00-0.02); LYMPH % 19.8 %; LYMPH ABS # 1.47 K/uL (1.2-3.4); MEAN CELL VOLUME 95.4 fL (80-100); MEAN CORPUSCULAR HEMOGLOBIN 31.6 pg (25-34); MEAN CORPUSCULAR HGB CONC 33.2 g/dl (32-36); MEAN PLATELET VOLUME 10.4 fL (7.4-10.4); MONO ABS # 0.52 K/uL (0.11-0.59); NEUT % 72.1 %; NEUT ABS # 5.34 K/uL (1.4-6.5); PLATELET COUNT 257 K/uL (130-400); RED CELL DISTRIBUTION WIDTH CV 12.9 % (11.5-14.5); RED CELL DISTRIBUTION WIDTH SD 44.9 fL (36.4-46.3); WHITE BLOOD COUNT 7.41 K/uL (4.8-10.8)
[2018-03-26 08:51] LABS: ALBUMIN 3.6 gm/dl (3.4-5.0); CALCIUM 8.2 mg/dl (8.5-10.1); CREATININE 0.65 mg/dl (0.60-1.20); POTASSIUM 4.3 mmol/L (3.5-5.1); TOTAL PROTEIN 6.7 gm/dl (6.4-8.2)
--- NOTE | 2018-03-26 11:20 | Psychiatric Consultation ---
Consultation Date of Consultation Mar 26, 2018. Identifying Data Luz Maria is a 23 yo female who identifies as transgender male and prefers the name Benjamin. Benjamin is reportedly homeless and consult is by Dr. Mesa for agitated psychosis. Benjamin was brought to [facility]. Chief Complaint "Are you gonna let me out of here? Are you gonna tell the police?". History of Present Illness Benjamin lacks insight into why in hospital. Was last seen 1 year ago for episode of cutting at a homeless [facility] and was committed to [place] for bipolar diagnosis. Was discharged on Zoloft and Risperdal but apparently stopped taking it soon after due to cost. This episode patient was acting erratically in a vape shop and required hand cuffs by police. On initial presentation had elevated temp and pulse and significant agitation that failed to respond to Haldol 20 mg and Ativan 4 mg IM. Patient was then intubated/received propofol. Currently resting on med floor, irritable when approached and won't engage in any meaningful conversation around treatment. After repeated questions about confidentiality, admitted to "dropping acid" and smoking MJ daily. Would not answer questions re : intent, yelled at provider for not discharging him to work, demanding he be paid for lost time. Past Psychiatric History Current OP Treatment: no current treatment Prior OP Treatment: therapist ([facility] Prior Psych Hospitalizations: other ([place] 2017) Past Medication Trials chart lists hospitalizations as a child and recurrent cutting behaviors, patient is uncooperative with interview and no way to confirm access to weapons Past Medical/Surgical History (1) Asthma exacerbation (2) Hyperthermia (3) Delirium (4) Leukocytosis Allergies Allergies: Coded Allergies: No Known Allergies (Unverified , 03/25/18) Home Medications Unable to Obtain Active Prescriptions or Reported Meds Family History Patient reports no known family medical history. History of Substance Abuse: Yes (was removed from bio parents to foster care for drug use. 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 Relationship History: never Children: denied Legal History: other (refused to answer) Review of Systems patient uncooperative Examination Vital Signs Vital Signs Past 12 Hours Date Time Temp Pulse Resp B/P (MAP) Pulse Ox O2 Delivery O2 Flow Rate FiO2 03/26/18 07:16 36.9 81 20 127/65 (85) 99 Room Air 03/26/18 00:07 36.7 58 18 111/55 (73) 98 Room Air 03/26/18 00:00 Room Air Laboratory Results Last 24 Hours Test 03/25/18 11:17 03/25/18 11:53 03/26/18 07:40 03/26/18 08:52 Bedside Glucose 66 mg/dl 71 mg/dl 79 mg/dl White Blood Count 7.41 K/uL Red Blood Count 4.52 M/uL Hemoglobin 14.3 g/dL Hematocrit 43.1 % Mean Corpuscular Volume 95.4 fL Mean Corpuscular Hemoglobin 31.6 pg Mean Corpuscular Hemoglobin Concent 33.2 g/dl Platelet Count 257 K/uL Mean Platelet Volume 10.4 fL Neutrophils (%) (Auto) 72.1 % Lymphocytes (%) (Auto) 19.8 % Monocytes (%) (Auto) 7.0 % Eosinophils (%) (Auto) 0.5 % Basophils (%) (Auto) 0.3 % Neutrophils # (Auto) 5.34 K/uL Lymphocytes # (Auto) 1.47 K/uL Monocytes # (Auto) 0.52 K/uL Eosinophils # (Auto) 0.04 K/uL Basophils # (Auto) 0.02 K/uL RDW Standard Deviation 44.9 fL RDW Coefficient of Variation 12.9 % Immature Granulocyte % (Auto) 0.3 % Immature Granulocyte # (Auto) 0.02 K/uL Sodium Level 138 mmol/L Potassium Level 4.3 mmol/L Chloride Level 110 mmol/L Carbon Dioxide Level 14 mmol/L Anion Gap 14.0 mmol/L Blood Urea Nitrogen 7 mg/dl Creatinine 0.65 mg/dl Est Creatinine Clear Calc Drug Dose 128.1 ml/min Estimated GFR () 147.1 Estimated GFR (Non- 126.9 BUN/Creatinine Ratio 10.8 Random Glucose 41 mg/dl Calcium Level 8.2 mg/dl Magnesium Level 1.9 mg/dl Total Bilirubin 0.6 mg/dl Direct Bilirubin 0.2 mg/dl Aspartate Amino Transf (AST/SGOT) 65 U/L Alanine Aminotransferase (ALT/SGPT) 27 U/L Alkaline Phosphatase 76 U/L Total Protein 6.7 gm/dl Albumin 3.6 gm/dl Test 03/26/18 09:59 Bedside Glucose 112 mg/dl Mental Examination During interview pt is: uncooperative, guarded Appearance: disheveled, other (picking at scabs on face to point of bleeding) Eye contact is: poor Motor behavior is: psychomotor agitation Speech: loud Affect: labile, irritable Mood is: irritable Thought process: perseveration Thought content: paranoid Suicidal thought are: denied (but cannot reliably contract as uncooperative with risk assessment) Hallucinations: other (did not appear to be responding to internal stimuli) Cognition: other (attention poor) Intelligence estimated to be: average Insight: severely impaired Judgement: severely impaired Impression / Recommendations Impression 23 yo transgender male who has a history of involuntary commitment for SIB 1 year ago who has been non-compliant with mood stabilizing medications and not maintaining regular housing or treatment. Dramatic presentation is consistent with hallucinogen ingestion but severe in that required intubation and patient remains labile and irritable and paranoid that likely also suggests baseline exacerbation of psychosis, probably related to bipolar betsy. The patient is in need of additional treatment and monitoring but is requesting immediate discharge from the hospital. Risk is too high given lack of ability to care for self outside of hospital and unwillingness to engage in any meaningful discussion of resuming antipsychotic medication or safety plan. Recommendations case reviewed with Dr. Mesa as patient should be held on 302 warrant pending medical clearance. Patient had recent hypoglycemic episode and will likely be continuing fluids overnight. Alerted attending that patient should have safety tray and 1-on-1 given risk of SIB and elopement. Would suggest offering Risperdal M tab 1 mg BID prn agitation (patient not willing to resume) and if refuses/unsafe level of agitation that can be managed on med floor proceed with Haldol 5-10 mg q4 IM prn.
[2018-03-26] MEDS ORDERED: RISPERIDONE ODT 1MG PO PRN (11:30)
--- NOTE | 2018-03-26 11:47 | Medical Student: [facility] ---
Consultation Date of Consultation: Mar 26, 2018. History of Present Illness IDENTIFYING INFORMATION: Mandeep Hobbs is a 23yo transgender male admitted for suspected drug-induced agitated psychosis. Pt has been homeless since January and denies any family or social support. CC: I am not going to talk until a doctor sees me and tells me when I'm leaving HISTORY OF PRESENT ILLNESS: Mandeep Hobbs is a 23yo transgender male admitted for suspected drug-induced agitated psychosis. Per ED note, pt was brought in to the ED by police for erratic behavior at an electronic cigarette store. Pt received 20MG Haldol and 4MG Ativan and required intubation. Pt states that he has no recollection of these events. Pt is very guarded and irritable this morning. Pt provides minimal and vague information. Pt is focused on being discharged because "I have two jobs" and " I have been trying to get to [place]." Pt states "I make 15 an hour, I need to be reimbursed." Pt does endorses a hx of depression as well as current depressive symptoms. Denies SI/HI. Pt endorses a prior hx of manic symptoms that were not substance induced, such as needing little sleep, pressured speech, and impulsivity. Pt says anxiety symptoms of worrying "come and go;" he does report episodes of "panic attacks" of racing heart, shortness of breath that are prompted by a stressful situation. Pt does not endorse thought disorder symptoms, such as AVH and delusions. Pt does endorse hypnopomopic hallucinations in the past; states "when I am waking up I would see spiders or carvings on the wall." Pt has been homeless since January and denies any family or social support. Pt has not been on medications since psychiatric hospitalization in February 2017 as patient states he was unable to afford the mediations. Pt has had no outpatient f/u care. Per ED note at [facility] in February 2017, pt was seen in the ED for concerns about self- mutilation and HI towards mother. 302 petitioner was staff member at homeless halfway pt was staying at and psychiatric hospitalization placement was at [facility]. It was noted pt may have had prior psychiatric diagnoses of depression , bipolar, PTSD, and anxiety. Prior medications indicated were resperiodone and zoloft. Pt declines 10 system ROS stating "nothing is bothering me" except for what is noted in the HPI. CURRENT MEDICATIONS: none PAST PSYCHIATRIC HISTORY: Current outpatient mental health treatment: none Prior outpatient mental health treatment: none Prior psychiatric hospitalizations: [facility] in February 2017 (for self-mutilation and HI towards mother; 302 petitioner was staff member at homeless halfway pt was staying at) Prior medication trials: zoloft, reperiodone Prior suicide attempts: none PAST MEDICAL HISTORY: Current primary care practitioner: none medical history: asthma history of iv drug use: pt refused to answer ALLERGIES: NKDA SUBSTANCE USE HISTORY: Tobacco use hx: uses e-cigarettes (amount and how often unclear) EtOH: none Illicit: pt refused to answer Rx: pt refused to answer PERSONAL HISTORY: Currently homeless since January; prior to that was living in an apartment with friends, but the lease ended in January Education: attended [employer] for 2.5 yrs; was majoring in [email or web address] Pt says he has no family 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; 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[facility]" Allergies Coded Allergies: No Known Allergies (Unverified , 03/25/18) Medications Current Inpatient Medications Medications (Trade) Dose Ordered Sig/Suyapa Route Start Time Stop Time Status Last Admin Dose Admin Potassium Chloride/Sodium Chloride 1,000 ml @ 125 mls/hr Q8H IV 03/25/18 03:30 04/24/18 03:29 03/26/18 03:35 125 MLS/HR Lorazepam (Ativan Inj) 1 mg Q6H PRN IV 03/25/18 00:15 04/24/18 00:14 Miscellaneous Information (Icu Protocol For Hyperglycemia) 1 ea PRN PRN N/A 03/25/18 00:15 03/27/18 00:14 Albuterol (Ventolin Hfa Inhaler) 2 puffs Q4 PRN INH 03/25/18 00:30 04/24/18 00:29 Lorazepam 1 mg/ Syringe 1 ml @ 1 mls/min Q6H PRN IV 03/25/18 03:30 04/24/18 03:29 Glucose (Glucose 40% Gel) 15-30 GRAMS 15 GRAMS... UD PRN PO 03/25/18 11:45 04/24/18 11:44 Glucose (Glucose Chew Tab) 4-8 Tablets 4 Tabl... UD PRN PO 03/25/18 11:45 04/24/18 11:44 Dextrose (Dextrose 50% 50ML Syringe) 25-50ML 25ML FOR ... UD PRN IV 03/25/18 11:45 04/24/18 11:44 Glucagon (Glucagon Inj) 1 mg UD PRN IM 03/25/18 11:45 04/24/18 11:44 Carbohydrates (Carbohydrates For Hypoglycemia) 15-30 GRAMS 15 grams if BSG 54-69... UD PRN PO 03/25/18 11:45 04/24/18 11:44 03/25/18 11:38 15 GM Physical Exam Date Time Temp Pulse Resp B/P (MAP) Pulse Ox O2 Delivery O2 Flow Rate FiO2 03/26/18 07:16 36.9 81 20 127/65 (85) 99 Room Air 03/26/18 00:07 36.7 58 18 111/55 (73) 98 Room Air 03/26/18 00:00 Room Air 03/25/18 17:50 36.7 64 16 145/82 (103) 99 Room Air 03/25/18 16:00 36.8 52 12 115/55 (75) 95 Room Air 03/25/18 16:00 Room Air 03/25/18 14:00 52 14 129/65 (86) 97 Room Air 03/25/18 12:00 36.5 62 10 147/88 (107) 97 Nasal Cannula 2.0 PHYSICAL EXAM: accept PE from medical attending MENTAL STATUS EXAM: Pt was guarded and irritable. Eye contact is poor Motor behavior is anxious mannerisms Speech: normal volume and rate; angry tone Affect: angry Mood: "so, so". Thought process: preoccupation with discharge Thought content: cognitive distortions Perception:denies AH/VH denies SI (but later states "I will hurt myself" if I am not discharged right away. Cognition: language intact Insight is estimated to be poor. Judgment is estimated to be severely impaired. Laboratory Results Last 24 Hours Test 03/25/18 11:17 03/25/18 11:53 03/26/18 07:40 03/26/18 08:52 Bedside Glucose 66 mg/dl 71 mg/dl 79 mg/dl White Blood Count 7.41 K/uL Red Blood Count 4.52 M/uL Hemoglobin 14.3 g/dL Hematocrit 43.1 % Mean Corpuscular Volume 95.4 fL Mean Corpuscular Hemoglobin 31.6 pg Mean Corpuscular Hemoglobin Concent 33.2 g/dl Platelet Count 257 K/uL Mean Platelet Volume 10.4 fL Neutrophils (%) (Auto) 72.1 % Lymphocytes (%) (Auto) 19.8 % Monocytes (%) (Auto) 7.0 % Eosinophils (%) (Auto) 0.5 % Basophils (%) (Auto) 0.3 % Neutrophils # (Auto) 5.34 K/uL Lymphocytes # (Auto) 1.47 K/uL Monocytes # (Auto) 0.52 K/uL Eosinophils # (Auto) 0.04 K/uL Basophils # (Auto) 0.02 K/uL RDW Standard Deviation 44.9 fL RDW Coefficient of Variation 12.9 % Immature Granulocyte % (Auto) 0.3 % Immature Granulocyte # (Auto) 0.02 K/uL Sodium Level 138 mmol/L Potassium Level 4.3 mmol/L Chloride Level 110 mmol/L Carbon Dioxide Level 14 mmol/L Anion Gap 14.0 mmol/L Blood Urea Nitrogen 7 mg/dl Creatinine 0.65 mg/dl Est Creatinine Clear Calc Drug Dose 128.1 ml/min Estimated GFR () 147.1 Estimated GFR (Non- 126.9 BUN/Creatinine Ratio 10.8 Random Glucose 41 mg/dl Calcium Level 8.2 mg/dl Magnesium Level 1.9 mg/dl Total Bilirubin 0.6 mg/dl Direct Bilirubin 0.2 mg/dl Aspartate Amino Transf (AST/SGOT) 65 U/L Alanine Aminotransferase (ALT/SGPT) 27 U/L Alkaline Phosphatase 76 U/L Total Protein 6.7 gm/dl Albumin 3.6 gm/dl Test 03/26/18 09:59 Bedside Glucose 112 mg/dl Assessment & Plan DIAGNOSTIC IMPRESSION: Mandeep Hobbs is a 23yo transgender male admitted for suspected drug-induced agitated psychosis. Pt states he got "some bad acid laced with something." Therefore, pt's agitated psychosis was most likely substance-induced. ddx: substance induced psychosis, psychosis NOS; bipolar I-manic with psychotic features, primary thought disorder. Pt mostly likely has an underlying mood disorder and would benefit from a mood stabilizer. Yet, pt is only providing very minimal information making the clinical assessment and diagnosis challenging. Pt is endorsing some symptoms of depression and potentially past hx of manic symptoms. Denies symptoms of thought disorder. Per February 2017 ED note, pt has possible past psychiatric diagnoses of depression, bipolar?, PTSD, and anxiety. Previous medications included zoloft and resperidone, but no medication for over a yr. Also per ED note, pt has hx of self mutilation. Pt currently providing minimal information, acting hostile, and saying if he is not discharged right away "I will hurt myself." Given pt's past psychiatric hx , self-mutilation, lack of halfway, lack of adequate outpatient treatment, absence of family and social support, and current SI, it is recommended that the pt needs a 302 inpatient psychiatric hospitalization for safety and stabilization. RECOMMENDATIONS: 1.) unspecified psychosis a. 302 warrant for psychiatric inpatient treatment based on level of risk highlighted in the impression b. pt would benefit from atypical antipsychotic- risperiodone 2MG PO for mood stabilization (based on pt's hx of depressive and manic symptoms as well as current agitation)
[2018-03-26 13:56] VITALS: BP 110/62; PULSE 61; TEMP 36.8; O2SAT 97
--- NOTE | 2018-03-26 18:04 | Progress Note ---
Internal Med Progress Note Date of Service: Mar 26, 2018. Provider Documentation: SUBJECTIVE: The patient was seen and examined in ICU She was admitted yesterday agitated psychosis which required intubation in ER She was noted to have high temperature at presentation without any source of infection She is extubated early this morning Feels drowsy and cannot remember about intubation at all Expressed to the hospital this morning even with AMA 03/26: The patient was seen and examined in medical floor She seems to be more conversant today and more understanding during my interaction with her Still cannot remember what happened to her following taking about 7 LSD tablets She wanted to go home and even threatened to sign out AMA Very low blood sugar of lower 40s or early this morning without any significant symptoms She was explained about the overdose of LSD and the symptoms or the complication it can cause Has a history of bipolar disorder and depression and was on medication before She was agreeable to take medications as per psychiatrist. Later this afternoon she became irrational she wants to go out of the hospital OBJECTIVE: Vital Signs-as noted below Exam: General-no apparent distress Status post extubation without any shortness of breath or distress at rest Has multiple superficial and minor injuries involving the face due to picking Eyes-normal ENT-normal Neck-supple Lungs-decreased breath sounds both sides but no wheezing or crackles Heart-regular, no murmur appreciated Abdomen-soft, benign, nontender Extremities-negative for any edema Neuro-alert and awake Seems to be oriented-does not want to answer Drowsy and falling asleep easily Moving all limbs equally Generally weak but no focal neuro deficit Lab data as noted below. ASSESSMENT & PLAN: This 23-year-old female presents with possible drug overdose and agitation. Probable overdose of LSD She admitted to take 7 pills of LSD on the day of admission She had agitated psychosis which required excessive dose of Haldol and Ativan Ended up with intubation at ER and she was extubated the next day Was noted to have a very low blood sugar this morning which could be due to LSD intoxication She still cannot remember anything that happened to her after she took the medications She now requires one-to-one sitter and will probably require inpatient psychiatric care as per psychiatrist She may need to be 302ed If there is no drop in blood sugar andshe remains stable hemodynamically. she will be cleared in the morning to go to psych floor Agitated psychosis; status post intubation last night and successful extubation this morning 03/25 Possible drug overdose with agitation. Received 4 mg of IV Ativan and IV Haldol 20 mg and status post intubation on Diprivan drip currently. Lactic acid was 3.5 and bicarb was 18-doubt any sepsis. Received IV cefepime and fluids in the ER. Empirically starting on Zosyn and vancomycin. Tox screen only positive for marijuana Has not been taking any antipsychotic medications as per the note Seems to very noncooperative in giving information Appreciate psychiatric input History of depression/bipolar disorder As per [facility] in 2013 she was on risperidone and Zoloft. Currently seems on Zoloft. Very difficult to get any information regarding her medical issues We need a psychiatric evaluation while in the hospital Will of Risperdal/Haldol for psychosis and now Likely to need inpatient psychiatric care History of asthma. Albuterol p.r.n. Deep venous thrombosis prophylaxis, SCDs for now. Disposition: Admit to the ICU. Appreciate mainstreaming facilitator input and recommendation Medically stable to be transferred to telemetry unit Vital Signs: Date Time Temp Pulse Resp B/P (MAP) Pulse Ox O2 Delivery O2 Flow Rate FiO2 03/26/18 13:56 36.8 61 20 110/62 (78) 97 Room Air 03/26/18 07:16 36.9 81 20 127/65 (85) 99 Room Air 03/26/18 00:07 36.7 58 18 111/55 (73) 98 Room Air 03/26/18 00:00 Room Air Lab Results: Results Past 24 Hours Test 03/26/18 07:40 03/26/18 08:52 03/26/18 09:59 03/26/18 12:05 Range/Units White Blood Count 7.41 4.8-10.8 K/uL Red Blood Count 4.52 4.2-5.4 M/uL Hemoglobin 14.3 12.0-16.0 g/dL Hematocrit 43.1 37-47 % Mean Corpuscular Volume 95.4 80-100 fL Mean Corpuscular Hemoglobin 31.6 25-34 pg Mean Corpuscular Hemoglobin Concent 33.2 32-36 g/dl Platelet Count 257 130-400 K/uL Mean Platelet Volume 10.4 7.4-10.4 fL Neutrophils (%) (Auto) 72.1 % Lymphocytes (%) (Auto) 19.8 % Monocytes (%) (Auto) 7.0 % Eosinophils (%) (Auto) 0.5 % Basophils (%) (Auto) 0.3 % Neutrophils # (Auto) 5.34 1.4-6.5 K/uL Lymphocytes # (Auto) 1.47 1.2-3.4 K/uL Monocytes # (Auto) 0.52 0.11-0.59 K/uL Eosinophils # (Auto) 0.04 0-0.5 K/uL Basophils # (Auto) 0.02 0-0.2 K/uL RDW Standard Deviation 44.9 36.4-46.3 fL RDW Coefficient of Variation 12.9 11.5-14.5 % Immature Granulocyte % (Auto) 0.3 % Immature Granulocyte # (Auto) 0.02 0.00-0.02 K/uL Sodium Level 138 136-145 mmol/L Potassium Level 4.3 3.5-5.1 mmol/L Chloride Level 110 98-107 mmol/L Carbon Dioxide Level 14 21-32 mmol/L Anion Gap 14.0 3-11 mmol/L Blood Urea Nitrogen 7 7-18 mg/dl Creatinine 0.65 0.60-1.20 mg/dl Est Creatinine Clear Calc Drug Dose 128.1 ml/min Estimated GFR () 147.1 Estimated GFR (Non- 126.9 BUN/Creatinine Ratio 10.8 10-20 Random Glucose 41 70-99 mg/dl Calcium Level 8.2 8.5-10.1 mg/dl Magnesium Level 1.9 1.8-2.4 mg/dl Total Bilirubin 0.6 0.2-1 mg/dl Direct Bilirubin 0.2 0-0.2 mg/dl Aspartate Amino Transf (AST/SGOT) 65 15-37 U/L Alanine Aminotransferase (ALT/SGPT) 27 12-78 U/L Alkaline Phosphatase 76 45-117 U/L Total Protein 6.7 6.4-8.2 gm/dl Albumin 3.6 3.4-5.0 gm/dl Bedside Glucose 79 112 93 70-90 mg/dl
[2018-03-26] MEDS ORDERED: HALOPERIDOL LACTATE 5 MG/ML 1 ML VIAL IM PRN (18:15)
[2018-03-26] MEDS ORDERED: NURSING VERBAL MED ORDER ONE (18:30)
[2018-03-27] MEDS: NSS + 20MEQ KCL 1000ML 1,000 ML IV SCH ×2 (00:14→08:16)
[2018-03-27 06:41] VITALS: BP 138/93; PULSE 57; TEMP 36.7; O2SAT 99
--- NOTE | 2018-03-27 07:22 | DIAGNOSTIC IMAGING REPORT ---
CHEST ONE VIEW PORTABLE CLINICAL HISTORY: Acute respiratory failure COMPARISON STUDY: 03/26/2018 FINDINGS: The cardiac and mediastinal contours are normal. There is no evidence of focal pulmonary consolidation. There is no evidence of failure. No pleural effusions are visualized.[ IMPRESSION: No active disease in the chest. Electronically signed by: Marquis Livingston M.D. 03/27/2018 7:21 AM Dictated Date/Time: 03/27/2018 7:20 AM
[2018-03-27 12:45] LABS: BASO % 0.1 %; BASO ABS # 0.01 K/uL (0-0.2); EOS % 0.9 %; EOS ABS # 0.06 K/uL (0-0.5); HEMATOCRIT 43.1 % (37-47); HEMOGLOBIN 14.8 g/dL (12.0-16.0); IG# 0.01 K/uL (0.00-0.02); LYMPH % 20.9 %; LYMPH ABS # 1.47 K/uL (1.2-3.4); MEAN CELL VOLUME 92.5 fL (80-100); MEAN CORPUSCULAR HEMOGLOBIN 31.8 pg (25-34); MEAN CORPUSCULAR HGB CONC 34.3 g/dl (32-36); MONO % 7.1 %; NEUT % 70.9 %; NEUT ABS # 4.98 K/uL (1.4-6.5); PLATELET COUNT 288 K/uL (130-400); RED CELL DISTRIBUTION WIDTH CV 12.8 % (11.5-14.5); RED CELL DISTRIBUTION WIDTH SD 42.8 fL (36.4-46.3); WHITE BLOOD COUNT 7.03 K/uL (4.8-10.8)
[2018-03-27] MEDS ORDERED: TESTOSTERONE CYPIONATE IM 200 MG/ML VIAL IM ONE (12:45)
[2018-03-27 13:07] LABS: CALCIUM 8.7 mg/dl (8.5-10.1); CREATININE 0.81 mg/dl (0.60-1.20); POTASSIUM 4.2 mmol/L (3.5-5.1); TOTAL PROTEIN 7.5 gm/dl (6.4-8.2)
[2018-03-27 14:56] VITALS: BP 118/68; PULSE 67; TEMP 36.6; O2SAT 98
--- NOTE | 2018-03-27 17:26 | Psychiatric Progress Notes ---
Progress Note Date of Service Mar 27, 2018. Chief Complaint "I was feeling perfectly fine until I took all that acid. It was the 10 drop challenge " Subjective Patient was seen & assessed interval progress reviewed with nursing staff and Dr Mesa directly. Patient has made significant gains. Much more cooperative and lucid today. No antipsychotic required since Risperdal oral dose given last evening. On interview patient is found to be frustrated but able to appropriately modulate affect and interacts logically and appropriately with the interviewer. Denies any significant mood disturbance prior to ingestion of hallucinogenic and denies thoughts of self-harm or harm to anyone else at time of ingestion or presently. Acknowledges readily that he does have a history of self-injurious behavior and suicidal ideation but reports that he has not been feeling that way and seemingly doing well despite homelessness. Spending time with friends daily. 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 Denies ingestion of other substances apart from the LSD and regular marijuana use. Denies that the LSD ingestion was an attempt at self-harm and reports that he had taken up to 6 doses in the past and thought that he would be able to tolerate 7 hoping to work up to 10. Demonstrates insight that the ingestion was dangerous, fully appreciates the untoward consequences of the ingestion and indicates that he plans never to take acid again. He expresses desire for discharge from the hospital to return to work tomorrow. Denies residual hallucinations. Fully oriented. Memory intact in all spheres apart from time of acute intoxication. Calculations and processing appear normal. Patient is willing to allow us to collect collateral information from outside sources and engages readily in safety planning. Denies historical perceived benefit from antipsychotic or antidepressant medication and has not been taking any prescription medication for about a year regarding psychotropics. Review of Systems Constitutional: + fatigue Neurologic: + problem reported (Feels at or very near normal cognitive baseline ) Psychiatric: + problem reported (Denies suicidal or homicidal ideation. Denies passive wish. Denies panic. Denies hallucinations.) Integumentary: + problem reported (Excoriations) Mental Status Exam During interview pt is: alert and oriented, cooperative Appearance: other (Multiple bandages covering excoriations on face) Eye contact is: good Motor behavior is: no abnormal motor movements Speech: normal in rate, rhythm & volume Affect: other (Affect is consistently calm. No tearfulness.) Mood is: other ("Frustrated, but otherwise I am okay ") Thought process: goal directed, linear, logical, clear, coherent Thought content: reality based without delusions Suicidal thought are: denied, Plan: denied, Intent: denied Homicidal thoughts are: denied Hallucinations: denies auditory, denies visual Cognition: memory grossly intact (However he is amnestic to time of intoxication. Attention adequate) Intelligence estimated to be: average Insight: fair Judgement: fair Plan - Acute intoxication secondary to hallucinogenic abuse resolved - In absence of intoxication there is no evidence of ongoing psychosis or acute mood disturbance - No suicidal or homicidal ideation. Patient able to convincingly contract for safety. Patient was easily engageable in safety planning and allowed contacting of outside historian with assistance from liaison nurse who reports patient's friend has allowed him to stay at his apartment for several days and denies concern that the patient was demonstrating any aberrant behavior or mood disturbance prior to the ingestion culminating in his hospitalization. - Patient agrees to return to the ER or call 911 if he feels unable to maintain his safety -Admittedly discharge planning is not ideal as the patient remains homeless and without outpatient resources in place. Declines voluntary admission for monitoring and improving access to resources. Patient has demonstrated ability to meet ADL needs adequately, has been maintaining regular employment, saving money, and demonstrates positive future orientation and there is not sufficient evidence of acute safety risk to support involuntary hospitalization at this time. Patient declined referral for case management services or substance abuse treatment as he plans to move next month. Denies feeling at risk or unsafe in leaving the hospital. I will discharge the 302 petition previously completed by my colleague, Dr. Salcedo, which was done while patient was still intoxicated and unable to engage in logical discussion about treatment needs and planning. - as patient has been off psychotropics for about a year and in absence of active mood cycling or psychosis, pt will not require an rx for risperdal at time of discharge. - patient was strongly advised to avoid further recreational drug use and the risks of such were discussed at length. Visit Code E&M Code: 63556 Data Vital Signs Last 24 Hrs: Date Time Temp Pulse Resp B/P (MAP) Pulse Ox O2 Delivery O2 Flow Rate FiO2 03/27/18 14:56 36.6 67 22 118/68 (85) 98 Room Air 03/27/18 08:00 Room Air 03/27/18 06:41 36.7 57 20 138/93 (108) 99 Room Air 03/27/18 00:00 Room Air Meds Administered Last 24 Hrs: Meds Administered (Past 24Hrs) Medications (Trade) Dose Ordered Sig/Suy[place] Route Start Time Stop Time Status Last Admin Dose Admin Risperidone (Risperdal M Tab) 1 mg BID PRN PO 03/26/18 11:30 04/25/18 11:29 03/26/18 20:37 1 MG Testosterone Cypionate (Depo-Testosterone Inj) 100 mg 1245 ONCE IM 03/27/18 12:45 03/27/18 12:46 DC 03/27/18 13:00 100 MG Lab Results Last 24 Hrs: Last 24 Hours Test 03/26/18 20:08 03/27/18 06:38 03/27/18 11:26 03/27/18 12:28 Bedside Glucose 96 mg/dl 77 mg/dl 75 mg/dl White Blood Count 7.03 K/uL Red Blood Count 4.66 M/uL Hemoglobin 14.8 g/dL Hematocrit 43.1 % Mean Corpuscular Volume 92.5 fL Mean Corpuscular Hemoglobin 31.8 pg Mean Corpuscular Hemoglobin Concent 34.3 g/dl Platelet Count 288 K/uL Mean Platelet Volume 10.0 fL Neutrophils (%) (Auto) 70.9 % Lymphocytes (%) (Auto) 20.9 % Monocytes (%) (Auto) 7.1 % Eosinophils (%) (Auto) 0.9 % Basophils (%) (Auto) 0.1 % Neutrophils # (Auto) 4.98 K/uL Lymphocytes # (Auto) 1.47 K/uL Monocytes # (Auto) 0.50 K/uL Eosinophils # (Auto) 0.06 K/uL Basophils # (Auto) 0.01 K/uL RDW Standard Deviation 42.8 fL RDW Coefficient of Variation 12.8 % Immature Granulocyte % (Auto) 0.1 % Immature Granulocyte # (Auto) 0.01 K/uL Sodium Level 137 mmol/L Potassium Level 4.2 mmol/L Chloride Level 107 mmol/L Carbon Dioxide Level 24 mmol/L Anion Gap 6.0 mmol/L Blood Urea Nitrogen 3 mg/dl Creatinine 0.81 mg/dl Est Creatinine Clear Calc Drug Dose 102.8 ml/min Estimated GFR () 120.3 Estimated GFR (Non- 103.8 BUN/Creatinine Ratio 4.1 Random Glucose 97 mg/dl Calcium Level 8.7 mg/dl Magnesium Level 1.9 mg/dl Total Bilirubin 0.6 mg/dl Direct Bilirubin 0.2 mg/dl Aspartate Amino Transf (AST/SGOT) 53 U/L Alanine Aminotransferase (ALT/SGPT) 34 U/L Alkaline Phosphatase 81 U/L Total Protein 7.5 gm/dl Albumin 4.0 gm/dl Total Testosterone 285.9 ng/dl Test 03/27/18 16:22 Bedside Glucose 105 mg/dl
--- NOTE | 2018-03-27 17:44 | Progress Note ---
Internal Med Progress Note Date of Service: Mar 27, 2018. Provider Documentation: SUBJECTIVE: The patient was seen and examined in ICU She was admitted yesterday agitated psychosis which required intubation in ER She was noted to have high temperature at presentation without any source of infection She is extubated early this morning Feels drowsy and cannot remember about intubation at all Expressed to the hospital this morning even with AMA 03/26: The patient was seen and examined in medical floor She seems to be more conversant today and more understanding during my interaction with her Still cannot remember what happened to her following taking about 7 LSD tablets She wanted to go home and even threatened to sign out AMA Very low blood sugar of lower 40s or early this morning without any significant symptoms She was explained about the overdose of LSD and the symptoms or the complication it can cause Has a history of bipolar disorder and depression and was on medication before She was agreeable to take medications as per psychiatrist. Later this afternoon she became irrational she wants to go out of the hospital 03/27: Much better today. Behaved well since last night. Denies any symptoms. Has been refusing blood work and refusing food Denies any agitation and wants to leave the hospital Much more conversant today, wanted to comply with the recommendations given by psychiatrist OBJECTIVE: Vital Signs-as noted below Exam: General-no apparent distress Status post extubation without any shortness of breath or distress at rest Has multiple superficial and minor injuries involving the face due to picking Eyes-normal ENT-normal Neck-supple Lungs-clear to auscultate bilaterally Heart-regular, no murmur appreciated Abdomen-soft, benign, nontender Extremities-negative for any edema Neuro-alert and awake and oriented 3 Can remember seeing me yesterday More rational in conversation and understanding Totally admit to comply with management plan He realizes that what he need was wrong and is not going to do it again. Lab data as noted below. ASSESSMENT & PLAN: This 23-year-old female presents with possible drug overdose and agitation. Probable overdose of LSD She admitted to take 7 pills of LSD on the day of admission She had agitated psychosis which required excessive dose of Haldol and Ativan Ended up with intubation at ER and she was extubated the next day Was noted to have a very low blood sugar this morning which could be due to LSD intoxication She still cannot remember anything that happened to her after she took the medications She now requires one-to-one sitter and will probably require inpatient psychiatric care as per psychiatrist She may need to be 302ed -03/26 No more complaints and no more dropping of blood sugar Can remember seeing me yesterday More rational in conversation and understanding Totally admit to comply with management plan She realizes that what she need was wrong and is not going to do it again. Agitated psychosis; status post intubation last night and successful extubation this morning 03/25 Possible drug overdose with agitation. Received 4 mg of IV Ativan and IV Haldol 20 mg and status post intubation on Diprivan drip currently. Lactic acid was 3.5 and bicarb was 18-doubt any sepsis. Received IV cefepime and fluids in the ER. Empirically starting on Zosyn and vancomycin. Tox screen only positive for marijuana Has not been taking any antipsychotic medications as per the note Seems to very noncooperative in giving information Appreciate psychiatric input- Has had a long discussion with Dr. Maria and also psychiatric liaison nurse Recommended that he can be discharged and he was given written recommendations to be done when he is discharged The social service recommended the same She will be discharged today History of depression/bipolar disorder As per [facility] in 2013 she was on risperidone and Zoloft. Currently seems on Zoloft. Very difficult to get any information regarding her medical issues We need a psychiatric evaluation while in the hospital Will of Risperdal/Haldol for psychosis and now Likely to need inpatient psychiatric care Did not like to have a follow-up appointment with psychiatrist We will get a follow-up appointment with the primary care provider and go from there History of asthma. Albuterol p.r.n. Possible identity problem; I am not an expert in that ground. She was admitted as a female but she requests her to address as male She was advised to follow-up with her care provider. Deep venous thrombosis prophylaxis, SCDs for now. Disposition: Admit to the ICU. Appreciate site project manager input and recommendation Medically stable to be transferred to telemetry unit Discharge home today Vital Signs: Date Time Temp Pulse Resp B/P (MAP) Pulse Ox O2 Delivery O2 Flow Rate FiO2 03/27/18 14:56 36.6 67 22 118/68 (85) 98 Room Air 03/27/18 08:00 Room Air 03/27/18 06:41 36.7 57 20 138/93 (108) 99 Room Air 03/27/18 00:00 Room Air Lab Results: Results Past 24 Hours Test 03/26/18 20:08 03/27/18 06:38 03/27/18 11:26 03/27/18 12:28 Range/Units Bedside Glucose 96 77 75 70-90 mg/dl White Blood Count 7.03 4.8-10.8 K/uL Red Blood Count 4.66 4.2-5.4 M/uL Hemoglobin 14.8 12.0-16.0 g/dL Hematocrit 43.1 37-47 % Mean Corpuscular Volume 92.5 80-100 fL Mean Corpuscular Hemoglobin 31.8 25-34 pg Mean Corpuscular Hemoglobin Concent 34.3 32-36 g/dl Platelet Count 288 130-400 K/uL Mean Platelet Volume 10.0 7.4-10.4 fL Neutrophils (%) (Auto) 70.9 % Lymphocytes (%) (Auto) 20.9 % Monocytes (%) (Auto) 7.1 % Eosinophils (%) (Auto) 0.9 % Basophils (%) (Auto) 0.1 % Neutrophils # (Auto) 4.98 1.4-6.5 K/uL Lymphocytes # (Auto) 1.47 1.2-3.4 K/uL Monocytes # (Auto) 0.50 0.11-0.59 K/uL Eosinophils # (Auto) 0.06 0-0.5 K/uL Basophils # (Auto) 0.01 0-0.2 K/uL RDW Standard Deviation 42.8 36.4-46.3 fL RDW Coefficient of Variation 12.8 11.5-14.5 % Immature Granulocyte % (Auto) 0.1 % Immature Granulocyte # (Auto) 0.01 0.00-0.02 K/uL Sodium Level 137 136-145 mmol/L Potassium Level 4.2 3.5-5.1 mmol/L Chloride Level 107 98-107 mmol/L Carbon Dioxide Level 24 21-32 mmol/L Anion Gap 6.0 3-11 mmol/L Blood Urea Nitrogen 3 7-18 mg/dl Creatinine 0.81 0.60-1.20 mg/dl Est Creatinine Clear Calc Drug Dose 102.8 ml/min Estimated GFR () 120.3 Estimated GFR (Non- 103.8 BUN/Creatinine Ratio 4.1 10-20 Random Glucose 97 70-99 mg/dl Calcium Level 8.7 8.5-10.1 mg/dl Magnesium Level 1.9 1.8-2.4 mg/dl Total Bilirubin 0.6 0.2-1 mg/dl Direct Bilirubin 0.2 0-0.2 mg/dl Aspartate Amino Transf (AST/SGOT) 53 15-37 U/L Alanine Aminotransferase (ALT/SGPT) 34 12-78 U/L Alkaline Phosphatase 81 45-117 U/L Total Protein 7.5 6.4-8.2 gm/dl Albumin 4.0 3.4-5.0 gm/dl Total Testosterone 285.9 ng/dl Test 03/27/18 16:22 Range/Units Bedside Glucose 105 70-90 mg/dl
[2018-03-27] MEDS ORDERED: PRVHFAIN INH (17:48)
--- NOTE | 2018-03-27 17:51 | Discharge Instructions ---
Discharge Instructions Date of Service Mar 27, 2018. 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 Instructions / Follow-Up Instructions / Follow-Up PLEASE MAKE AN APPOINTMENT WITH YOUR CARE PROVIDER Current Hospital Diet Patient's current hospital diet: Regular Diet Discharge Diet Recommended Diet: Regular Diet Pending Studies Studies pending at discharge: no Medical Emergencies . Who to Call and When: Medical Emergencies: If at any time you feel your situation is an emergency, please call 911 immediately. . Non-Emergent Contact Non-Emergency issues call your: Primary Care Provider . 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 "Provider Documentation" section prepared by Juliet Mesa. .
[2018-03-27 17:57] VITALS: BP 118/68; PULSE 67; TEMP 36.6; O2SAT 98
--- NOTE | 2018-03-28 08:40 | Discharge Summary ---
Discharge Summary Date of Service Mar 28, 2018. Discharge Summary Admission Date: Mar 25, 2018 at 00:11 Discharge Date: Mar 27, 2018 Discharge Disposition: Home Principal Diagnosis: Acute intoxication secondary to hallucinogenic abuse resolved,Likely LSD Secondary Diagnoses/Problems: Please see H&P and Hospital Progress note Consultations: Telephone Service Adviser,Psychiatry Medication Reconciliation New Medications: Albuterol (Ventolin Hfa) 60 Puffs/5400 Mcg Aers 2 PUFFS INH Q4 PRN for Wheezing for 30 Days, #1 INHALER Admission Information HPI (per Admitting provider): DATE OF ADMISSION: 03/25/2018 CHIEF COMPLAINT: Possible drug overdose. HISTORY OF PRESENT ILLNESS: This is a 23-year-old female with past medical history significant for asthma, depression, questionable bipolar disorder, also history of some fever and other psychological disturbance of temperature regulation was brought in because of altered mental status. Patient was at a store where they sell electric cigarette and stuff where she was getting agitated and was making a scene and police was called. Police had her handcuffed at the scene and brought her into the ER. In the ER, she was very much agitated and was hitting everyone, so she was given 20 of Haldol and 4 mg of IV Ativan and got intubated. Currently status post intubation with Diprivan drip. After intubation, her vital signs are stable. She had a temperature spike in the ER. No other history is available at this time as patient is status post intubation and also confusion on presentation. No family available at this time. Her labs are white count of 14,000, creatinine of 1.2, point of care lactic acid 3.5, total creatinine kinase 638. Rest of the labs are okay. Chest x-ray is okay. CT of the head and cervical spine CT was done in the ER, I do not have the official report at this time.she was given cefepime and fluids in the ER. ALLERGIES: No known drug allergies. PAST MEDICAL HISTORY: As mentioned above. PAST SURGICAL HISTORY: As far as from the [facility], none. MEDICATIONS: Zoloft 100 mg daily from the [facility] in 2014 records. She was on Risperdal 0.25 mg b.i.d., sertraline 50 mg p.o. daily, and albuterol p.r.n. FAMILY HISTORY: Grandmother has asthma. Mother has asthma. SOCIAL HISTORY: Not available at this time. REVIEW OF SYSTEMS: Not available at this time. PHYSICAL EXAMINATION: GENERAL: Patient is of moderate build, currently status post intubation and sedation. HEENT: No pallor, no icterus. Pupils equal and sluggish to reaction light NECK: No neck masses. CARDIOVASCULAR: S1, S2 heard, regular rate and rhythm, no murmur, no gallop. RESPIRATORY SYSTEM: Normal AP diameter. No accessory muscle use. No wheezing, no crackles. ABDOMEN: Soft, bowel sounds sluggish. No distention. CENTRAL NERVOUS SYSTEM: Currently status post intubated and sedated. EXTREMITIES: No edema, no erythema seen. LABORATORIES: WBC 14.4, hemoglobin is 14.9, hematocrit 42.4, platelets 325. Sodium 142, potassium 3.8, chloride 107, bicarbonate 18, BUN 14, creatinine 1.2, serum glucose 118. Point of care lactic acid 3.5, calcium 9.1, total bilirubin 0.6, direct bilirubin 0.3, AST 40, ALT 27, alkaline phosphatase 94, total creatinine kinase 638, troponin I of 0.015. PT 11, INR 1, APTT 24.8. Chest x-ray, no pneumothorax, no pleural effusions, lungs are clear. ASSESSMENT AND PLAN: This 23-year-old female presents with possible drug overdose and agitation. 1. Possible drug overdose with agitation. Received 4 mg of IV Ativan and IV Haldol 20 mg and status post intubation on Diprivan drip currently. Lactic acid was 3.5 and bicarb was 18. Received IV cefepime and fluids in the ER. We will be empirically starting on Zosyn and vancomycin. Follow blood cultures and urine cultures. Has leukocytosis, follow labs in the a.m. Most likely her symptoms could be from drug overdose. Counseling, psych consult when patient is more stable. 2. History of depression. As per [facility] in 2013 she was on risperidone and Zoloft. Currently seems on Zoloft. We will discuss with the patient when the patient is more stable .psych consult. 3. History of asthma. Albuterol p.r.n. 4. Deep venous thrombosis prophylaxis, SCDs for now. 5. Disposition: Admit to the ICU. Total critical care time 40 minutes. Dictated: 03/25/18 0029 Transcribed: 03/25/18 0313 <Electronically signed by Curtis Leigh MD> Signed: 03/25/18 0551 ES Curtis Leigh MD Hospital Course This 23-year-old female presents with possible drug overdose and agitation. Probable overdose of LSD She admitted to take 7 pills of LSD on the day of admission She had agitated psychosis which required excessive dose of Haldol and Ativan Ended up with intubation at ER and she was extubated the next day Was noted to have a very low blood sugar this morning which could be due to LSD intoxication She still cannot remember anything that happened to her after she took the medications She now requires one-to-one sitter and will probably require inpatient psychiatric care as per psychiatrist She may need to be 302ed -03/26 No more complaints and no more dropping of blood sugar Can remember seeing me yesterday More rational in conversation and understanding Totally admit to comply with management plan She realizes that what she need was wrong and is not going to do it again. Agitated psychosis; status post intubation last night and successful extubation this morning 03/25 Possible drug overdose with agitation. Received 4 mg of IV Ativan and IV Haldol 20 mg and status post intubation on Diprivan drip currently. Lactic acid was 3.5 and bicarb was 18-doubt any sepsis. Received IV cefepime and fluids in the ER. Empirically starting on Zosyn and vancomycin. Tox screen only positive for marijuana Has not been taking any antipsychotic medications as per the note Seems to very noncooperative in giving information Appreciate psychiatric input- Has had a long discussion with Dr. Maria and also psychiatric liaison nurse Recommended that he can be discharged and he was given written recommendations to be done when he is discharged The social service recommended the same She will be discharged today History of depression/bipolar disorder As per [facility] in 2013 she was on risperidone and Zoloft. Currently seems on Zoloft. Very difficult to get any information regarding her medical issues We need a psychiatric evaluation while in the hospital Will of Risperdal/Haldol for psychosis and now Likely to need inpatient psychiatric care Did not like to have a follow-up appointment with psychiatrist We will get a follow-up appointment with the primary care provider and go from there History of asthma. Albuterol p.r.n. Possible identity problem; I am not an expert in that ground. She was admitted as a female but she requests her to address as male She was advised to follow-up with her care provider. Deep venous thrombosis prophylaxis, SCDs for now. Disposition: Admit to the ICU. Appreciate lightning rod installer input and recommendation Medically stable to be transferred to telemetry unit Discharge home today Total time spent on discharge = 35 minutes This includes examination of the patient, discharge planning, medication reconciliation, and communication with other providers. Discharge Instructions Date of Service Mar 27, 2018. 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 Instructions / Follow-Up Instructions / Follow-Up PLEASE MAKE AN APPOINTMENT WITH YOUR CARE PROVIDER Current Hospital Diet Patient's current hospital diet: Regular Diet Discharge Diet Recommended Diet: Regular Diet Pending Studies Studies pending at discharge: no Medical Emergencies . Who to Call and When: Medical Emergencies: If at any time you feel your situation is an emergency, please call 911 immediately. . Non-Emergent Contact Non-Emergency issues call your: Primary Care Provider . 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 "Provider Documentation" section prepared by Juliet Mesa. . <Electronically signed by Juliet Mesa M.D.> Signed: 03/27/18 7938
== END 2018-03-27 18:21 | disposition home or self-care (01) | DRG 918 ==
LOC: EDBD 22:16 → EDSEX 22:16 → C.EDA 22:18 → C.MSICU 03-25 00:11 → ENRESERV 03-25 00:25 → EDBEDREQ 03-25 15:52 → CANRESERV 03-25 16:45 → ENRESERVDT 03-25 16:45 → ENRESERVTM 03-25 16:45 → ENRESERV 03-25 16:47 → C.MS4W 03-25 17:45
PROVIDERS: ADMIT Internal Medicine; ATTEND Internal Medicine
PROC: 0BH17EZ Insertion of Endotracheal Airway into Trachea, Via Natural or Artificial Opening (ICD-10-PCS; principal; 2018-03-25)
DX: T40.8X1A Poisoning by lysergide [LSD], accidental (unintentional), initial encounter (principal); J45.909 Unspecified asthma, uncomplicated; F32.9 Major depressive disorder, single episode, unspecified; F31.9 Bipolar disorder, unspecified